=== PATIENT | female | born 1995 | race Caucasian/White ===

== ENCOUNTER 2019-04-11 05:25 | Inpatient (IN) | payer MEDICAID ==
[2019-04-11] MEDS ORDERED: LACTATED RINGER'S 1,000 ML IV (05:56)
[2019-04-11] MEDS ORDERED: OXYTOCIN 30 UNITS/LR 500 ML IV ×2 (06:00→12:30)
[2019-04-11] MEDS ORDERED: METHYLERGONOVINE 0.2 MG INJ IM ×2 (06:00→12:30)
[2019-04-11] MEDS ORDERED: LIDOCAINE 1% (MPF) 30 ML INJ INJ (06:00)
[2019-04-11] MEDS ORDERED: MISOPROSTOL 200 MCG TAB PR ×2 (06:00→12:30)
[2019-04-11] MEDS ORDERED: CARBOPROST 250 MCG INJ IM ×2 (06:00→12:30)
[2019-04-11] MEDS: AMPICILLIN 2 GM/NS (PMX) 100 ML IV (06:30)
[2019-04-11] MEDS: LACTATED RINGER'S 1,000 ML IV (06:30)
[2019-04-11] MEDS: MAGNESIUM SULFATE 4 GM/100 ML 100 ML IV (06:30)
[2019-04-11] MEDS: BETAMET NA PHOS/AC(6 MG/ML) 2 ML INJ SYG IM (06:38)
[2019-04-11 06:39] LABS: ADD MAN DIFF? NO
[2019-04-11 06:49] LABS: WHITE BLOOD COUNT 11.6 10^3/ul (4.8-10.8)
[2019-04-11 06:49] LABS: BASOPHIL # 0.1 10^3/ul (0.0-0.1); BASOPHILS % 0.5 % (0.0-2.0); EOSINOPHILS # 0.1 10^3/ul (0.0-0.5); EOSINOPHILS % 1.1 % (0.0-7.0); HEMATOCRIT 36.6 % (37.0-47.0); LYMPHOCYTES # 2.8 10^3/ul (0.8-2.9); LYMPHOCYTES % 24.1 % (15.0-51.0); MEAN CORPUSCULAR HGB CONC 32.8 g/dl (32.0-37.0); MEAN CORPUSCULAR VOLUME 85.3 fl (82.0-101.0); MEAN PLATELET VOLUME 10.2 fl (7.4-10.4); MONOCYTE # 0.7 10^3/ul (0.3-0.9); MONOCYTES % 6.3 % (0.0-11.0); NEUTROPHIL # 7.8 10^3/ul (1.6-7.5); NEUTROPHILS % 67.4 % (39.0-77.0); PLATELET COUNT 241 10^3/UL (140-415); RED BLOOD COUNT 4.29 10^6/ul (4.20-5.40); RED CELL DISTRIBUTION WIDTH 12.9 % (11.5-14.5)
[2019-04-11 06:52] LABS: ADD UMIC YES; UR ASCORBIC ACID NEGATIVE (NEGATIVE); UR BACTERIA FEW /HPF (NONE SEEN); UR BILIRUBIN (Dip) NEGATIVE (NEGATIVE); UR BLOOD (Dip) 3+ mg/dL (NEGATIVE); UR CLARITY CLEAR (CLEAR); UR COLOR STRAW (YELLOW); UR GLUCOSE (Dip) NEGATIVE (NEGATIVE); UR KETONES (Dip) NEGATIVE (NEGATIVE); UR LEUKOCYTE ESTERASE (Dip) TRACE Leu/ul (NEGATIVE); UR NITRITE (Dip) NEGATIVE (NEGATIVE); UR RBC 11 /HPF (0-5); UR SPECIFIC GRAVITY (Dip) 1.003 (1.003-1.030); UR TOTAL PROTEIN (Dip) NEGATIVE (NEGATIVE); UR UROBILINOGEN (Dip) NEGATIVE (NEGATIVE); UR WBC 8 /HPF (0-5)
[2019-04-11] MEDS: MAGNESIUM SULFATE 20 GM/500 ML 500 ML IV (07:00)
[2019-04-11 07:06] LABS: INR 0.95; PROTIME 12.8 Sec (11.9-14.9)
[2019-04-11 07:17] LABS: AMPHETAMINE/METHAMPHETAMINE Negative (NEGATIVE); BARBITURATES Negative (NEGATIVE); BENZODIAZEPINES Negative (NEGATIVE); CANNABINOIDS Negative (NEGATIVE); COCAINE Negative (NEGATIVE); OPIATES Negative (NEGATIVE)
[2019-04-11 07:40] LABS: HEPATITIS B SURFACE ANTIGEN NEGATIVE (NEGATIVE)
[2019-04-11] MEDS ORDERED: AMPICILLIN 1 GM/NS (PMX) 50 ML IV (10:00)
[2019-04-11] MEDS: OXYTOCIN 30 UNITS/LR 500 ML IV ×2 (10:08→10:28)
[2019-04-11] MEDS: IBUPROFEN 600 MG TAB PO ×3 (10:26→23:37)
[2019-04-11] MEDS: LACTATED RINGER'S 1,000 ML IV* (12:26)
[2019-04-11] MEDS: DEXTROSE 5%-LR 1,000 ML IV (12:26)
[2019-04-11] MEDS ORDERED: DIBUCAINE 1% 30 GM OINT TOP (12:30)
[2019-04-11] MEDS ORDERED: ONDANSETRON 4 MG INJ IV (12:30)
[2019-04-11] MEDS ORDERED: BENZOCAINE 20% 56 ML SPRAY TOP (12:30)
[2019-04-11] MEDS ORDERED: ZOLPIDEM 5 MG TAB PO (12:30)
[2019-04-11] MEDS ORDERED: DIPHENHYDRAMINE 50 MG INJ IV (12:30)
[2019-04-11] MEDS ORDERED: OXYCODONE/ASPIRIN (4.88/325) TAB PO (12:30)
[2019-04-11] MEDS ORDERED: SENNA/DOCUSATE NA (8.6MG/50MG) TAB PO (12:30)
[2019-04-11] MEDS ORDERED: ACETAMINOPHEN 325 MG TAB PO (12:30)
[2019-04-11] MEDS ORDERED: WITCH HAZEL/GLYCERIN PAD PR (12:30)
[2019-04-11 14:58] LABS: RAPID PLASMA REAGIN NONREACTIVE (NR)
[2019-04-12] MEDS: IBUPROFEN 600 MG TAB PO ×4 (05:26→23:29)
[2019-04-12 06:52] LABS: ADD MAN DIFF? NO
[2019-04-12 06:57] LABS: BASOPHILS % 0.1 % (0.0-2.0); HEMATOCRIT 33.8 % (37.0-47.0); LYMPHOCYTES # 2.1 10^3/ul (0.8-2.9); LYMPHOCYTES % 11.5 % (15.0-51.0); MEAN CORPUSCULAR HEMOGLOBIN 27.8 pg (29.0-33.0); MEAN CORPUSCULAR HGB CONC 32.5 g/dl (32.0-37.0); MEAN CORPUSCULAR VOLUME 85.4 fl (82.0-101.0); MEAN PLATELET VOLUME 10.4 fl (7.4-10.4); MONOCYTE # 0.8 10^3/ul (0.3-0.9); MONOCYTES % 4.4 % (0.0-11.0); NEUTROPHIL # 15.3 10^3/ul (1.6-7.5); NEUTROPHILS % 82.9 % (39.0-77.0); PLATELET COUNT 245 10^3/UL (140-415); RED BLOOD COUNT 3.96 10^6/ul (4.20-5.40)
[2019-04-12 06:57] LABS: WHITE BLOOD COUNT 18.5 10^3/ul (4.8-10.8)
[2019-04-12] MEDS: LANOLIN HPA 1 PKT TOP (09:44)
[2019-04-13] MEDS: IBUPROFEN 600 MG TAB PO ×2 (05:41→12:01)
[2019-04-13] MEDS: MEASLES,MUMPS,RUBELLA VACCINE INJ SC* (09:00)
[2019-04-13 09:40] LABS: ADD MAN DIFF? NO
[2019-04-13 09:42] LABS: WHITE BLOOD COUNT 12.1 10^3/ul (4.8-10.8)
[2019-04-13 09:42] LABS: BASOPHIL # 0.1 10^3/ul (0.0-0.1); BASOPHILS % 0.5 % (0.0-2.0); EOSINOPHILS % 0.2 % (0.0-7.0); HEMATOCRIT 35.5 % (37.0-47.0); HEMOGLOBIN 11.4 g/dl (12.0-16.0); LYMPHOCYTES # 2.8 10^3/ul (0.8-2.9); LYMPHOCYTES % 22.9 % (15.0-51.0); MEAN CORPUSCULAR HEMOGLOBIN 28.3 pg (29.0-33.0); MEAN CORPUSCULAR HGB CONC 32.1 g/dl (32.0-37.0); MEAN CORPUSCULAR VOLUME 88.1 fl (82.0-101.0); MEAN PLATELET VOLUME 10.7 fl (7.4-10.4); MONOCYTE # 0.8 10^3/ul (0.3-0.9); MONOCYTES % 6.5 % (0.0-11.0); NEUTROPHIL # 8.3 10^3/ul (1.6-7.5); PLATELET COUNT 261 10^3/UL (140-415); RED BLOOD COUNT 4.03 10^6/ul (4.20-5.40); RED CELL DISTRIBUTION WIDTH 13.3 % (11.5-14.5)
[2019-04-13 10:16] LABS: MAGNESIUM 1.7 mg/dl (1.7-2.5)
[2019-04-13] MEDS: DIPHTH/TET/ACEL PERTUSS (ADULT) 0.5 ML VIAL IM* (12:02)
[2019-04-13 19:31] LABS: MAGNESIUM 1.7 mg/dl (1.7-2.5)
== END 2019-04-13 17:35 | disposition home or self-care (01) | DRG 807 ==
LOC: OBT 05:25 → L-D 05:25 → OBT 05:50 → L-D 05:50 → PP1 12:07
PROC: 10E0XZZ Delivery of Products of Conception, External Approach (ICD-10-PCS; principal; 2019-04-11)
DX: O60.13X0 Preterm labor second trimester with preterm delivery third trimester, not applicable or unspecified (principal); Z37.0 Single live birth; Z3A.30 30 weeks gestation of pregnancy
CPT/HCPCS: 76815; 80307; 81001; 83735; 85025; 85610; 85730; 86592; 86850; 86900; 86901; 87086; 87340; 88307; 90715